=== PATIENT | female | born 1930 | race Caucasian/White ===

== ENCOUNTER → 2016-09-03 | Outpatient (CLI) | payer MEDICARE, OTHER ==
--- NOTE | 2016-09-04 10:55 | KCIC ---
PROCEDURE MRI of the brain without contrast 09/03/2016 HISTORY Severe headaches for 10 days. TECHNIQUE Unenhanced T1 weighted sagittal and axial and FLAIR, gradient echo, T2 weighted and diffusion weighted images the brain were obtained. Patient was unable to tolerate further imaging and T2 weighted coronal images were unable to be obtained. FINDINGS There is generalized parenchymal atrophy. Patchy and small focal areas of abnormally increased signal intensity are seen within the periventricular and subcortical white matter of both cerebral hemispheres along with the sharonda on the FLAIR and T2 weighted images consistent with areas of small vessel ischemic disease. No acute parenchymal abnormality is seen. There is no MRI evidence of acute ischemia/infarction. No extra-axial fluid collection is seen. Mild mucosal thickening is seen throughout the paranasal sinuses. Normal flow voids are seen within the major vascular structures surrounding the brain parenchyma. IMPRESSION No acute parenchymal abnormality is seen. Electronically signed by: Bob Garcia MD (Sep 04, 2016 10:54:56)
== END | disposition home or self-care (01) ==
LOC: KCIC MRI 16:00
PROVIDERS: ATTEND Nurse Practitioner Family
DX: G31.89 Other specified degenerative diseases of nervous system (principal)
CPT/HCPCS: 70551

== ENCOUNTER → 2018-05-06 | Outpatient (CLI) | payer MEDICARE, OTHER ==
--- NOTE | 2018-05-06 14:08 | EKG ---
[facility] [address] [place] [address] Test Date: 2018-05-06 Test Time: 14:03:01 Pat Name: ZIYAD ZIMMER Department: Room: Gender: F Senior Technical Specialist: JERICA : [id number] Requested By: Ruma MILLER Order Number: [id number] Reading MD: Eugene Guerrier MD Measurements Intervals Child[place] Rate: 54 P: 34 [place]: 134 QRS: 18 QRSD: 90 T: 42 QT: 414 QTc: 398 Interpretive Statements SINUS RHYTHM ATRIAL PREMATURE COMPLEX(ES) Electronically Signed On 05-08-2018 13:43:03 CDT by Eugene Guerrier MD
--- NOTE | 2018-05-06 14:58 | RAD ---
EXAM: Chest, 2 views. HISTORY: Pain. Knee surgery. COMPARISON: None. FINDINGS: 2 views of the chest are obtained. There is no infiltrate, pleural effusion or pneumothorax. The heart is normal in size. There is a tortuous thoracic aorta. There is increased thoracic kyphosis. There is hyperinflation due to inspiratory effort or emphysema. IMPRESSION: No acute pulmonary finding. Electronically signed by: Lizet Jimenez MD (05/06/2018 2:55 PM) [place] [id number]
== END | disposition home or self-care (01) ==
LOC: EKG 13:46
PROVIDERS: ATTEND Orthopaedic Surgery Sports Medicine
DX: Z01.818 Encounter for other preprocedural examination (principal); M40.294 Other kyphosis, thoracic region; M25.561 Pain in right knee; R22.41 Localized swelling, mass and lump, right lower limb
CPT/HCPCS: 71046; 93005